=== PATIENT | male | born 1965 | race Caucasian/White ===

== ENCOUNTER → 2017-10-04 | Outpatient (REF) | payer OTHER ==
[2017-10-04 18:25] LABS: COMPLEMENT C3 163 MG/DL (90-180); COMPLEMENT C4 30.9 MG/DL (10-40); IMMUNOGLOBULIN G 1300 MG/DL (681-1648); IMMUNOGLOBULIN M 32.5 MG/DL (40-230)
[2017-10-09 08:07] LABS: ALPHA 1 ANTITRYPSIN 153 mg/dL (90-200)
[2017-10-09 08:07] LABS: D001-IgE D pteronyssinus 0.23 kU/L (Class 0/I); E001-IgE Cat Epith/Dander < 0.10 kU/L (Class 0); E005-IgE Dog Dander < 0.10 kU/L (Class 0); F002-IgE Milk 0.53 kU/L (Class I); F004-IgE Wheat 0.98 kU/L (Class II); F013-IgE Peanut 0.42 kU/L (Class I); F014-IgE Soybean 0.13 kU/L (Class 0/I); F026-IgE Pork < 0.10 kU/L (Class 0); F027-IgE Beef < 0.10 kU/L (Class 0); F092-IGE BANANA <0.10 kU/L (Class 0); F245-IgE Egg, Whole 0.17 kU/L (Class 0/I); FX02-IgE Food Mix (Sea Foods) Negative (.); G002-IgE Bermuda Grass < 0.10 kU/L (Class 0); G008-IgE Kentucky Bluegrass 0.43 kU/L (Class I); M001-IgE Penicillium chrysogen < 0.10 kU/L (Class 0); M002 IgE Cladosporium herbaru < 0.10 kU/L (Class 0); M003 IgE Aspergillus fumigatu < 0.10 kU/L (Class 0); M006-IgE Alternaria alternata < 0.10 kU/L (Class 0); T001-IgE Maple/Box Elder < 0.10 kU/L (Class 0); T006-IgE Cedar, Mountain 0.44 kU/L (Class I); T007-IgE Oak, White < 0.10 kU/L (Class 0); T008-IgE Elm, American < 0.10 kU/L (Class 0); T041-IgE Hickory, White 0.12 kU/L (Class 0/I); T070-IgE White Mulberry < 0.10 kU/L (Class 0); W001-IgE Ragweed, Short < 0.10 kU/L (Class 0); W009-IgE Plantain, English 0.11 kU/L (Class 0/I); W014-IgE Pigweed, Rough < 0.10 kU/L (Class 0); W018-IgE Sheep Sorrel < 0.10 kU/L (Class 0)
== END ==
LOC: M LAB REF 17:19
DX: R05 Cough (principal); H10.45 Other chronic allergic conjunctivitis; J32.0 Chronic maxillary sinusitis

== ENCOUNTER 2018-07-22 20:06 | Inpatient (IN) | payer OTHER ==
[~2018-07-22] VITALS: Ht 167.6 cm; Wt 132.0 kg
[2018-07-22] MEDS ORDERED: METHOCARBAMOL 1,000 MG/10 ML VIAL (J2800) IV ONE (20:30)
[2018-07-22] MEDS ORDERED: KETOROLAC 30 MG/ML VIAL (J1885) IV ONE (20:30)
[2018-07-22] MEDS ORDERED: ONDANSETRON 4MG/2ML VIAL (J2405) IV ONE (20:30)
[2018-07-22 20:57] LABS: BASO # 0.1 10^3/uL (0.0-0.2); BASO % 1.1 % (0.0-1.0); EOS # 0.7 10^3/uL (0.0-0.50); EOS % 8.5 % (0.0-3.0); HEMATOCRIT 42.5 % (42.0-52.0); HEMOGLOBIN 14.6 g/dl (13.5-17.5); LYMPH # 2.3 10^3/uL (1.5-4.5); LYMPH % 28.1 % (24.0-44.0); MEAN CORPUSCULAR HEMOGLOBIN 28.8 pg (27.0-33.0); MEAN CORPUSCULAR HGB CONC 34.4 g/dl (32.0-36.5); MEAN CORPUSCULAR VOLUME 83.8 fl (80.0-96.0); MONO # 0.9 10^3/uL (0.0-0.8); MONO % 10.9 % (0.0-5.0); NEUTROPHILS # 4.2 10^3/uL (1.8-7.7); NEUTROPHILS % 50.9 % (36.0-66.0); PLATELET COUNT, AUTOMATED 381 10^3/uL (150-450); RED BLOOD COUNT 5.07 10^6/uL (4.30-6.10); WHITE BLOOD COUNT 8.2 10^3/uL (4.0-10.0)
[2018-07-22 21:14] LABS: BLOOD UREA NITROGEN 14 MG/DL (7-18); CALCIUM LEVEL 8.7 MG/DL (8.5-10.1); CARBON DIOXIDE LEVEL 24 MEQ/L (21-32); CHLORIDE LEVEL 106 MEQ/L (98-107); GLOMERULAR FILTRATION RATE > 60.0 (>56); GLUCOSE, FASTING 93 MG/DL (70-100); POTASSIUM SERUM 4.2 MEQ/L (3.5-5.1); SODIUM LEVEL 138 MEQ/L (136-145)
--- NOTE | 2018-07-22 21:32 | REP ---
Clinical: Lower back pain. Technique: Axial noncontrast images from T11 through mid sacrum with coronal and sagittal re-formations. Findings: Large posterior disc herniation and vacuum phenomenon at the L5-S1 level is appreciated along with endplate sclerosis/heterogeneity and osteophyte formation. There is associated chronic bilateral L5 spondylolysis without spondylolisthesis along with chronic hypertrophic facet changes which narrow the lateral recesses. A small posterior disc bulges are also identified at the L3-4 and L4-5 levels with marginal osteophyte formation. Remainder examination appears normal. There is no evidence for acute fracture / compression injury or subluxation. The spinal canal is patent. Posterior elements and spinous processes through the L4-5 level are maintained. Impression: 1. Advanced degenerative disc disease at the L5-S1 level with chronic spondylolysis and hypertrophic facet changes as well as posterior disc bulge and significant vacuum phenomenon. Narrowing to the lateral recesses noted and effacement of the exiting nerve roots cannot be excluded. 2. Moderate degenerative changes with small posterior disc bulges at the L3-4 and L4-5 levels. Electronically Signed by Dustin Smith MD 07/22/2018 09:24 P
[2018-07-22 22:12] LABS: ACETAMINOPHEN LEVEL < 2.0 UG/ML (10.0-30.0); ALBUMIN 3.8 GM/DL (3.2-5.2); ALT/SGPT 19 U/L (12-78); BILIRUBIN,DIRECT 0.1 MG/DL (0.0-0.2); BILIRUBIN,TOTAL 0.4 MG/DL (0.2-1.0); ETHYL ALCOHOL (ETHANOL) < 0.003 % (0.000-0.010); SALICYLATE LEVEL < 1.7 MG/DL (5.0-30.0)
[2018-07-22] MEDS ORDERED: ALEV220T26 PO (22:38)
[2018-07-22] MEDS ORDERED: TORS20TA2 PO (22:38)
[2018-07-22] MEDS ORDERED: CETI10TA PO (22:38)
[2018-07-22] MEDS ORDERED: ZOLP10TA2 PO (22:38)
[2018-07-22] MEDS ORDERED: HYDR5CR TOP (22:38)
[2018-07-22] MEDS ORDERED: TYLE500T78 PO (22:38)
[2018-07-22] MEDS ORDERED: OMEP40CA2 PO (22:38)
[2018-07-23] MEDS: MORPHINE 4 MG/ML 1ML VIAL/SYRINGE (J2270) IV PRN (00:29)
[2018-07-23 00:43] LABS: AMPHETAMINES LEVEL URINE NEGATIVE (NEGATIVE); BARBITURATES URINE NEGATIVE (NEGATIVE); BENZODIAZEPINES URINE NEGATIVE (NEGATIVE); CANNABINOIDS URINE NEGATIVE (NEGATIVE); COCAINE METABOLITE URINE NEGATIVE (NEGATIVE); METHADONE URINE NEGATIVE (NEGATIVE); OPIATES URINE NEGATIVE (NEGATIVE); PHENCYCLIDINE URINE NEGATIVE (NEGATIVE)
[2018-07-23] MEDS ORDERED: traZODone 50 MG TAB PO PRN (01:15)
[2018-07-23] MEDS ORDERED: MAALOX 30 ML SUSP *UDC PO PRN (01:15)
[2018-07-23] MEDS ORDERED: MOM 30ML SUSPENSION UDC PO PRN (01:15)
[2018-07-23] MEDS ORDERED: ACETAMINOPHEN TAB 650MG DOSE (2X325MG) PO PRN (01:15)
[2018-07-23 04:01] VITALS: BP 148/90
[2018-07-23] MEDS ORDERED: NICOTINE 21MG/24HR 1 EA TRANSDERMAL TD SCH (09:00)
--- NOTE | 2018-07-23 09:10 | HPEPDOC ---
[facility] Medical History & Physical Date of Admission Jul 23, 2018 History and Physical PCP: Karoline Teixeira [employer] ATTENDING: Dr. Shankar Colindres HPI: 53 [facility] for unspecified depressive disorder, being medically examined today. The patient complains of low back pain. States it has been ongoing for some time. PCP recently ordered x-rays. CT scan was completed in the emergency department. States everything he has been prescribed for his low back pain has been ineffective. He states he has tried Tylenol, ibuprofen, naproxen, tramadol, and muscle relaxer. Tends to have pain in his hips and lower extremities. Uses a cane for ambulation. Denies falls. Reports no numbness or tingling. The patient has an ileostomy. Denies loss of urine control. Denies any fevers, chills, weakness, fatigue, SKELTON, CP, SOB, cough, palpitations, abdominal pain, N/V/D or changes in bowel or bladder habits. PMHx: Chronic low back pain Insomnia Allergic rhinitis Hypertension Eczema GERD Obesity. BMI 47.0 JAVID. CPAP. PSHX: Ileostomy Tonsillectomy Dupuytren's contracture left hand SOCHX: Resides in: [facility] Marital Status: Single Kids: None Employment: Unemployed Tobacco use: Denies ETOH: Denies Illicit Drugs: Denies IV Drug Use: Denies Tattoos done unprofessionally: Denies FAMHX: Mother: Alive, well Father: Alive, well ROS: As noted in HPI, otherwise 11pt ROS of systems reviewed and unremarkable. PE: GEN: 53 yo M, appears stated age. Appears unkept. No acute distress. Alert and oriented x 3. Pleasant, interactive. HEENT: Normocephalic, atraumatic. Pupils are equal, round, and reactive to light. Extraocular movements are intact. No nystagmus appreciated. Sclera are nonicteric. Conjunctiva without injection. Nose midline. Nasal turbinates without bogginess. EACs both patent BL. TMs both visualized and sutton with good cone of light, no bulging or erythema. No facial asymmetry. Moist mucous membranes. Dentition fair. Pharynx pink and moist, no cobblestoning. Neck supple, trachea midline. No lymphadenopathy or thyromegaly appreciated. CHEST: Regular rate and rhythm, +S1, +S2 LUNGS: Clear to auscultation bilaterally. No wheezes, rales, or rhonchi. Breathing appears symmetric and easy. Patient is speaking in full sentences. No accessory muscle use. ABD: Round, soft, non-tender, non-distended. +Bowel sounds throughout. No rebound or guarding. No costovertebral angle tenderness. EXT: Pulses 2+ bilaterally dorsalis pedis and radial. No lower extremity edema appreciated. SKIN: [place], dry, warm. Capillary refill <2sec. No rashes. NEURO: Alert and oriented x 3. Cranial nerves III-XII are intact. No focal deficits appreciated. Ambulating with the assistance of cane. EKG: pending Lumbar CT 1. Advanced degenerative disc disease at the L5-S1 level with chronic spondylolysis and hypertrophic facet changes as well as posterior disc bulge and significant vacuum phenomenon. Narrowing to the lateral recesses noted and effacement of the exiting nerve roots cannot be excluded. 2. Moderate degenerative changes with small posterior disc bulges at the L3-4 and L4-5 levels. Electronically Signed by Dustin Smith MD 07/22/2018 09:24 P A&P: 53 yo M [facility] for unspecified depressive disorder 1. Psych. Plan per Psychiatry. Obtain baseline EKG to assure the safety of psychiatric medications as they can prolong the QT interval. 2. GERD. Continue Prilosec 40 mg by mouth daily. 3. Allergic rhinitis. Continue Zyrtec 10 mg daily. 4. Follow up with PCP on discharge. 5. Hypertension. Continue torsemide 20 mg by mouth every other day. 6. Obesity. BMI noted to be 47. Complicates care. TSH is noted within normal limits. Glucose on admission noted to be 93. 7. JAVID. Continue CPAP with home settings. 8. Chronic low back pain. CT scan indicating degenerative disc disease. Continue Tylenol 650 mg every 6 hours as needed. Apply Lidoderm patch 12 hours on 12 hours off. Patient states he has tried multiple medications including ibuprofen, naproxen, tramadol, muscle relaxers which are all ineffective. Consider pain management consultation if needed. 9. Staff member Kwan present throughout exam. Vital Signs Vital Signs Date Time Temp Pulse Resp B/P (MAP) Pulse Ox O2 Delivery O2 Flow Rate FiO2 07/23/18 04:01 97.3 100 18 148/90 (109) 07/23/18 03:08 97 07/23/18 01:30 Room Air Laboratory Data Labs 24H Laboratory Tests 2 07/22/18 20:35: Immature Granulocyte % (Auto) 0.5, White Blood Count 8.2, Red Blood Count 5.07, Hemoglobin 14.6, Hematocrit 42.5, Mean Corpuscular Volume 83.8, Mean Corpuscular Hemoglobin 28.8, Mean Corpuscular Hemoglobin Concent 34.4, Red Cell Distribution Width 13.2, Platelet Count 381, Neutrophils (%) (Auto) 50.9, Lymphocytes (%) (Au to) 28.1, Monocytes (%) (Auto) 10.9H, Eosinophils (%) (Auto) 8.5H, Basophils (%) (Auto) 1.1H, Neutrophils # (Auto) 4.2, Lymphocytes # (Auto) 2.3, Monocytes # (Auto) 0.9H, Eosinophils # (Auto) 0.7H, Basophils # (Auto) 0.1, Nucleated Red Blood Cells % (auto) 0.0, Anion Gap 8, Glomerular Filtration Rate > 60.0, Calcium Level 8.7, Aspartate Amino Transf (AST/SGOT) 22, Alanine Aminotransferase (ALT/SGPT) 19, Alkaline Phosphatase 145H, Total Bilirubin 0.4, Direct Bilirubin 0.1, Total Protein 7.0, Albumin 3.8, Albumin/Globulin Ratio 1.19, Thyroid Stimulating Hormone (TSH) 1.540, Salicylates Level < 1.7L, Acetaminophen Level < 2.0L, Ethyl Alcohol Level < 0.003 07/22/18 23:58: Urine Amphetamines Screen NEGATIVE, Urine Benzodiazepines Screen NEGATIVE, Urine Opiates Screen NEGATIVE, Urine Methadone Screen NEGATIVE, Urine Barbiturates Screen NEGATIVE, Urine Phencyclidine Screen NEGATIVE, Urine Cocaine Metabolite Screen NEGATIVE, Urine Cannabinoids Screen NEGATIVE CBC/BMP Laboratory Tests 07/22/18 20:35 Red Blood Count 5.07, Mean Corpuscular Volume 83.8, Mean Corpuscular Hemoglobin 28.8, Mean Corpuscular Hemoglobin Concent 34.4, Red Cell Distribution Width 13.2, Neutrophils (%) (Auto) 50.9, Lymphocytes (%) (Auto) 28.1, Monocytes (%) (Auto) 10.9 H, Eosinophils (%) (Auto) 8.5 H, Basophils (%) (Auto) 1.1 H, Neutrophils # (Auto) 4.2, Lymphocytes # (Auto) 2.3, Monocytes # (Auto) 0.9 H, Eosinophils # (Auto) 0.7 H, Basophils # (Auto) 0.1 Home Medications Scheduled Omeprazole (Omeprazole) 40 Mg Cap, 40 MG PO DAILY Torsemide (Torsemide) 20 Mg Tab, 20 MG PO Q2D Scheduled PRN Acetaminophen (Tylenol Extra Strength) 500 Mg Tab, 1,000 MG PO Q6H PRN for PAIN Cetirizine HCl (Cetirizine HCl) 10 Mg Tab, 10 MG PO QHS PRN for ALLERGY SYMPTOMS Hydrocortisone (Hydrocortisone 0.5%) 1 Dose/30 Gm Cream, 1 DOSE TOP BID PRN for ECZEMA USES ON HANDS Naproxen Sodium (Aleve) 220 Mg Tab, 440 MG PO BID PRN for PAIN Zolpidem Tartrate (Zolpidem Tartrate) 10 Mg Tab, 10 MG PO QHS PRN for SLEEP Allergies Coded Allergies: Dust Mite Extract (Verified Allergy, Intermediate, 07/22/18) METALS (Verified Allergy, Intermediate, 07/22/18) POLLEN (Verified Allergy, Intermediate, 07/22/18) Rebecca Pate Jul 23, 2018 09:10
[2018-07-23] MEDS ORDERED: CETIRIZINE (ZyrTEC) 10 MG TAB PO PRN (09:15)
[2018-07-23] MEDS: TORSEMIDE 20 MG TAB PO SCH (10:23)
[2018-07-23] MEDS: LIDOCAINE 5% (LIDODERM) PATCH TD SCH (10:24)
[2018-07-23] MEDS: OMEPRAZOLE 20 MG CAP PO SCH (10:24)
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
[2018-07-23] MEDS ORDERED: traMADol 50 MG TAB PO PRN (14:45)
[2018-07-23] MEDS: GABAPENTIN 300 MG CAP PO SCH ×2 (15:13→20:12)
[2018-07-23 18:00] VITALS: BP 162/86
[2018-07-23] MEDS: ARIPiprazole 2 MG TAB PO SCH (20:12)
[2018-07-23] MEDS: **NOTE PATIENT COMMENT** MISC XX SCH (20:13)
[2018-07-23] MEDS: traMADol 50 MG TAB PO SCH (20:40)
[2018-07-24 06:50] VITALS: BP 127/75
[2018-07-24] MEDS: GABAPENTIN 300 MG CAP PO SCH ×3 (08:57→21:00)
[2018-07-24] MEDS: OMEPRAZOLE 20 MG CAP PO SCH (08:57)
[2018-07-24] MEDS: VENLAFAXINE **XR** 75MG CAPSULE PO SCH (08:57)
[2018-07-24] MEDS: traMADol 50 MG TAB PO SCH ×3 (08:58→21:00)
[2018-07-24] MEDS: LIDOCAINE 5% (LIDODERM) PATCH TD SCH (08:59)
[2018-07-24] MEDS ORDERED: FLUBLOK(EGG FREE)(QUAD)INFLUENZA VACC 0.5ML SYRINGE (90682)18YRS&OLDER IM ONE (09:00)
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
[2018-07-24] MEDS: CYCLOBENZAPRINE 5MG TABLET PO SCH ×2 (12:00→21:00)
[2018-07-24 18:00] VITALS: BP 163/99
[2018-07-24] MEDS: **NOTE PATIENT COMMENT** MISC XX SCH (21:00)
[2018-07-24] MEDS: ARIPiprazole 2 MG TAB PO SCH (21:00)
--- NOTE | 2018-07-24 21:24 | ECGEPIP ---
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
[2018-07-25 06:22] VITALS: BP 131/77
[2018-07-25 08:25] LABS: CHOLESTEROL RISK RATIO 5.769 (<5)
--- NOTE | 2018-07-25 09:21 | REP ---
MRI LUMBAR SPINE WITHOUT CONTRAST: HISTORY: Back pain. COMPARISON: CT 07/22/2018. Decreased signal intensity on T2-weighted images is present in the L5-S1 intervertebral disc. The disc is decreased in height. These findings are consistent with disc degeneration. There is no disc bulge or herniation at the L1-2 level. The L1 nerves exit the neural foramina without compression. A diffuse disc bulge is present at the L2-3 level. This abuts the thecal sac. The L2 nerves exit the neural foramina without compression. A diffuse disc bulge is present at the L3-4 level. This abuts the thecal sac. The L3 nerves exit the neural foramina without compression. A diffuse disc bulge is present at the L4-5 level. This abuts the thecal sac. The L4 nerves exit the neural foramina without compression. A diffuse disc bulge and small central disc protrusion are present at the L5-S1 level. The disc protrusion abuts the thecal sac. There is hypertrophy of the posterior articulating facets. There are bilateral L5 pars defects. There is compression of the L5 nerves in the neural foramina. There is an increase in the amount of epidural fat. There is mild compression of the thecal sac. The conus medullaris is normal in appearance terminating at the level of the L1-2 intervertebral disc. Increased signal intensity on T2-weighted images is present in the endplates of the L5 and S1 vertebral bodies. This represents degenerative change. Hemangiomas are present in the L1 and S1 vertebral bodies. IMPRESSION: 1. Diffuse disc bulges at the L2-3 through L4-5 levels . The disc bulges abut the thecal sac. 2. Diffuse disc bulge and small central disc protrusion at the L5-S1 level. This abuts the thecal sac. There is an increase in the amount of epidural fat with mild thecal sac compression. There are bilateral L5 pars defects. There is compression of the L5 nerves in the neural foramina. Electronically Signed by Nilo Garcia MD 07/25/2018 09:32 A
[2018-07-25 09:29] LABS: HEMOGLOBIN A1c 5.5 %
[2018-07-25] MEDS: VENLAFAXINE **XR** 75MG CAPSULE PO SCH (09:31)
[2018-07-25] MEDS: OMEPRAZOLE 20 MG CAP PO SCH (09:31)
[2018-07-25] MEDS: GABAPENTIN 300 MG CAP PO SCH (09:31)
[2018-07-25] MEDS: CYCLOBENZAPRINE 5MG TABLET PO SCH (09:31)
[2018-07-25] MEDS: LIDOCAINE 5% (LIDODERM) PATCH TD SCH (09:32)
[2018-07-25] MEDS: traMADol 50 MG TAB PO SCH (09:35)
[2018-07-25] MEDS: TORSEMIDE 20 MG TAB PO SCH (09:37)
[2018-07-25] MEDS ORDERED: GABA-843 PO (11:21)
[2018-07-25] MEDS ORDERED: TRAM50TA2 PO ×2 (11:21→11:23)
[2018-07-25] MEDS ORDERED: TRAZO50TA PO (11:21)
[2018-07-25] MEDS ORDERED: LIDO5TD TD (11:21)
[2018-07-25] MEDS ORDERED: VENL75CA47 PO (11:21)
[2018-07-25] MEDS ORDERED: CYCL5TAB PO (11:21)
[2018-07-25] MEDS ORDERED: ARIP2TAB PO (11:21)
--- NOTE | 2018-07-29 12:38 | MHDSPDOC ---
[facility] Discharge Summary Discharge Summary DATE OF ADMISSION: Jul 23, 2018 at 01:02 DATE OF DISCHARGE: Jul 25, 2018 DISCHARGE DIAGNOSES: 1. Major Depressive disorder, secondary to other medical condition 2. IDALIA 3. Social Anxiety disorder 4. Ulcerative colitis 5. Lower back pain 6. Sleep apnea REASON FOR ADMISSION: Per H and P by Dr. Juares 07/25/18: "Patient is a 53 -year-old , male, who according to ED report: "Reason for Referral Pt initially presented to the ED due to back pain. He told an RN that he was suicidal. Chief Complaint Pt states that he has had back pain that has become worse over the past few months. Pt states he is suicidal because of the pain with a plan to OD. Pt has meds at home plus he has a "stash" of OTC meds. Pt c/o depression, anxiety in crowds, hopelessness & helplessness, poor appetite, & poor sleep. Pt uses a CPAP & also has an ostomy. Pt has a hx of depression & anxiety but no current OP tx. He is prescribed Effexor by his PCP. Pt denies substance use but states that he has been using more Tylenol & Aleve than he should be to control his pain." CONSULTANTS INVOLVED: None TREATMENT AND PROGRESS ON THE UNIT : Patient admitted on a 9.39, for suicidal ideations. Reported when he is in pain "he feels like dying", but that he has no plan to end his life and that he was receiving poor outside support for pain control. Patient in no acute distress, alert and oriented x4, denies side effects from medications, at time of discharge denies suicidal or homicidal ideations, denies ana laura, denies paranoia or hallucinations. He received an spine CT in the ED and MRI on the unit which showed lumbar spine disk bulges and L5 compression. EKG showed sinus tachycardia at 104 bpm, QTc 453 ms with RBBB, CBC unremarkable (apart from elevated monocytes), CMP unremarkable, TSH within normal limits at 1.540, lipid panel showed hyperlipidemia (tag 336 mg/dl, total cholesterol 225 mg/dl, ldl at 119 mg/dl) was low at HDL 39 mg/dl. Hba1c was within normal range at 5.5%. He was continued on home medications and CPAP which was tolerated well. Dis not attend groups due to pain while walking, pain consult was ordered. He was started on tramadol which was discontinued, torsemide 20 mg PO Q2days, 5% lidocain patch, gabapentin 300 mg PO TID for pain. Pain was decreased to a 3-5/10 while walking and lower while lying down. He was able to manage his ostomy bad while on the unit. He was also continued on home effexor 225 mg PO daily for mood/anxiety and started on abilify 2 mg PO QHS for augmentation of his antidepressant. During stay with decrease in pain and medications for depression reported his mood/anxiety improved. He also learned coping skills while staying a room with his his roommate, as he feels anxious around others, this was a point of therapy. HOSPITAL COURSE: See above. DISCHARGE ASSESSMENT: He should be raftered by primary doctor for pain management and neurology outpatient followup appointment. He should also be assessed for possible treatment of hyperlipidemia. On discharge he denies suicidal or homicidal ideations, denies ana laura or hallucinations, denies paranoia, he is alert and oriented x4, in no acute distress, reports 3-5/10 pain when not lying flat, denies side effects of his medications. States his mood is "fine" and that he is ready to leave. MENTAL STATUS EXAMINATION ON DISCHARGE: Patient is a 53-year old morbidly obese male, who is not in pain only if lies flat and does not move, improved eye-contact. Speech: Is normal rate, rhythm, volume. Language skills are good. Thought processes including: linear, logical Thought content: Perseverates on pain. Abstract reasoning, and computation: intact. Description of associations: intact Description of abnormal or psychotic thoughts: Denies Judgment: fair Insight: good Orientation: x4 Recent and remote memory: intact Attention span and concentration: intact Language: zambian Fund of knowledge: average Mood: "fine" Affect: mildly anxious to leave, constricted, mood-congruent, does not smile MEDICATIONS ON DISCHARGE: Scheduled Aripiprazole (Aripiprazole) 2 Mg Tab, 2 MG PO QHS for mood/antidepressant booster Cyclobenzaprine HCl (Cyclobenzaprine HCl) 5 Mg Tab, 5 MG PO BID for muscle relaxants Gabapentin (Gabapentin) 300 Mg Cap, 300 MG PO TID for neuropathy Lidocaine (Lidocaine) 5 % Pad, 1 PATCH TD DAILY for lidocaine patch Apply to lower back. The patch should stay fro only 12 hpurs and then it must be removed. Omeprazole (Omeprazole) 40 Mg Cap, 40 MG PO DAILY Torsemide (Torsemide) 20 Mg Tab, 20 MG PO Q2D Venlafaxine HCl (Venlafaxine HCl ER) 75 Mg Capcr, 225 MG PO DAILY for depression/anxiety Scheduled PRN Acetaminophen (Tylenol Extra Strength) 500 Mg Tab, 1,000 MG PO Q6H PRN for PAIN Cetirizine HCl (Cetirizine HCl) 10 Mg Tab, 10 MG PO QHS PRN for ALLERGY SYMPTOMS Hydrocortisone (Hydrocortisone 0.5%) 1 Dose/30 Gm Cream, 1 DOSE TOP BID PRN for ECZEMA USES ON HANDS Naproxen Sodium (Aleve) 220 Mg Tab, 440 MG PO BID PRN for PAIN Trazodone HCl (Trazodone HCl) 50 Mg Tab, 50 MG PO QHSP PRN for INSOMNIA Zolpidem Tartrate (Zolpidem Tartrate) 10 Mg Tab, 10 MG PO QHS PRN for SLEEP PLAN/FOLLOWUP ARRANGEMENTS: Follow Up Care Education Label * Medical * Medical Follow Up [facility] * Established With This Provider Yes * Therapist LAURA EDMONDSON * Date Aug 05, 2018 * Time 13:00 * Address of Clinic or Practice [address] [place] [address] * Follow Up Care Education Label * Mental Health Appt 1 * Mental Health [facility] * Established With This Provider No * Therapist TITA * Date Jul 30, 2018 * Time 15:00 * Address of Clinic or Practice [address] [place] [address] * * Additional information Remember to bring your insurance card and photo ID to the appointment. Follow Up Care Education Label * Mental Health Appt 2 * Mental [facility] * Established With This Provider No * Therapist CAROL * Date Aug 21, 2018 * Time 10:30 * Address of Clinic or Practice [address] [place] [address] * * Additional information Remember to bring your insurance card and photo ID to the appointment. The amount of time spent in the coordination of care for this patient was approximately 30 minutes. Vital Signs/I&Os Vital Signs Date Time Temp Pulse Resp B/P (MAP) Pulse Ox O2 Delivery O2 Flow Rate FiO2 07/25/18 09:35 76 18 07/25/18 06:22 99.1 131/77 (95) 07/23/18 03:08 97 07/23/18 01:30 Room Air Laboratory Data Labs 24H Laboratory Tests 2 07/25/18 07:15: Estimated Mean Plasma Glucose 111H, Hemoglobin A1c 5.5, Triglycerides Level 336H, LDL Cholesterol 119H, Total Cholesterol 225H, Non-HDL Cholesterol (LDL + VLDL) 186, Total HDL Cholesterol 39L, Cholesterol/HDL Ratio 5.769H Medications Scheduled Aripiprazole (Aripiprazole) 2 Mg Tab, 2 MG PO QHS for mood/antidepressant booster, #7 Cyclobenzaprine HCl (Cyclobenzaprine HCl) 5 Mg Tab, 5 MG PO BID for muscle relaxants, #14 Gabapentin (Gabapentin) 300 Mg Cap, 300 MG PO TID for neuropathy, #21 Lidocaine (Lidocaine) 5 % Pad, 1 PATCH TD DAILY for lidocaine patch, #7 Apply to lower back. The patch should stay fro only 12 hpurs and then it must be removed. Omeprazole (Omeprazole) 40 Mg Cap, 40 MG PO DAILY, (Reported) Torsemide (Torsemide) 20 Mg Tab, 20 MG PO Q2D, (Reported) Venlafaxine HCl (Venlafaxine HCl ER) 75 Mg Capcr, 225 MG PO DAILY for depression/anxiety, #21 Scheduled PRN Acetaminophen (Tylenol Extra Strength) 500 Mg Tab, 1,000 MG PO Q6H PRN for PAIN, (Reported) Cetirizine HCl (Cetirizine HCl) 10 Mg Tab, 10 MG PO QHS PRN for ALLERGY SYMPTOMS, (Reported) Hydrocortisone (Hydrocortisone 0.5%) 1 Dose/30 Gm Cream, 1 DOSE TOP BID PRN for ECZEMA, (Reported) USES ON HANDS Naproxen Sodium (Aleve) 220 Mg Tab, 440 MG PO BID PRN for PAIN, (Reported) Trazodone HCl (Trazodone HCl) 50 Mg Tab, 50 MG PO QHSP PRN for INSOMNIA, #7 Zolpidem Tartrate (Zolpidem Tartrate) 10 Mg Tab, 10 MG PO QHS PRN for SLEEP, (Reported) Allergies Coded Allergies: Dust (Verified Allergy, Intermediate, 07/24/18) METALS (Verified Allergy, Intermediate, 07/22/18) POLLEN (Verified Allergy, Intermediate, 07/22/18) MILAN ANGELES PGY-1 Jul 25, 2018 13:41
== END 2018-07-25 14:44 | disposition home or self-care (01) | DRG 754 ==
LOC: M ED 20:06 → M ED INP 07-23 01:02 → M PSY 07-23 03:20
PROVIDERS: ADMIT Psychiatry & Neurology Psychiatry; ATTEND Psychiatry & Neurology Psychiatry
DX: F32.9 Major depressive disorder, single episode, unspecified (principal); K51.90 Ulcerative colitis, unspecified, without complications; Z68.42 Body mass index [BMI] 45.0-49.9, adult; F41.1 Generalized anxiety disorder; F40.10 Social phobia, unspecified; M47.896 Other spondylosis, lumbar region; G47.33 Obstructive sleep apnea (adult) (pediatric); F06.31 Mood disorder due to known physiological condition with depressive features; J30.1 Allergic rhinitis due to pollen; L30.9 Dermatitis, unspecified; E78.5 Hyperlipidemia, unspecified; K21.9 Gastro-esophageal reflux disease without esophagitis; E66.9 Obesity, unspecified; M51.26 Other intervertebral disc displacement, lumbar region; Z91.048 Other nonmedicinal substance allergy status; Z93.2 Ileostomy status; Z79.899 Other long term (current) drug therapy

== ENCOUNTER 2018-08-12 18:20 | Emergency (ER) | payer OTHER ==
[~2018-08-12] VITALS: Ht 167.6 cm; Wt 133.6 kg
[~2018-08-12 18:20] MED LIST: ALEV220T26 PO; ARIP1TAB4 PO; CETI10TA PO; CYCL5TAB PO; GABA-843 PO; HYDR5CR TOP; LIDO5TD TD; OMEP40CA2 PO; TORS20TA2 PO; TRAM50TA2 PO; TRAZO50TA PO; TYLE500T78 PO; VENL75CA47 PO; ZOLP10TA2 PO
[2018-08-12 20:03] LABS: BASO % 0.4 % (0.0-1.0); EOS # 0.4 10^3/uL (0.0-0.50); EOS % 4.4 % (0.0-3.0); HEMATOCRIT 51.3 % (42.0-52.0); HEMOGLOBIN 17.2 g/dl (13.5-17.5); LYMPH # 0.7 10^3/uL (1.5-4.5); LYMPH % 7.6 % (24.0-44.0); MEAN CORPUSCULAR HEMOGLOBIN 29.2 pg (27.0-33.0); MEAN CORPUSCULAR HGB CONC 33.5 g/dl (32.0-36.5); MEAN CORPUSCULAR VOLUME 86.9 fl (80.0-96.0); MONO # 0.8 10^3/uL (0.0-0.8); MONO % 8.3 % (0.0-5.0); NEUTROPHILS # 7.4 10^3/uL (1.8-7.7); NEUTROPHILS % 78.8 % (36.0-66.0); PLATELET COUNT, AUTOMATED 456 10^3/uL (150-450); WHITE BLOOD COUNT 9.4 10^3/uL (4.0-10.0)
[2018-08-12 20:20] LABS: ALBUMIN 4.5 GM/DL (3.2-5.2); BILIRUBIN,DIRECT 0.2 MG/DL (0.0-0.2); CALCIUM LEVEL 9.6 MG/DL (8.5-10.1); CREATININE FOR GFR 1.34 MG/DL (0.70-1.30); GLOMERULAR FILTRATION RATE 59.1 (>56); POTASSIUM SERUM 4.9 MEQ/L (3.5-5.1); TOTAL PROTEIN 8.5 GM/DL (6.4-8.2)
[2018-08-12] MEDS ORDERED: NS 1,000 ML IV ONE ×2 (21:15)
[2018-08-12] MEDS ORDERED: ONDANSETRON 4MG/2ML VIAL (J2405) IV ONE (21:15)
[2018-08-12 23:28] VITALS: BP 107/71
== END 2018-08-12 23:38 | disposition home or self-care (01) ==
LOC: M ED 18:20
DX: R19.7 Diarrhea, unspecified (principal); B34.9 Viral infection, unspecified; I10 Essential (primary) hypertension; F33.9 Major depressive disorder, recurrent, unspecified; F41.9 Anxiety disorder, unspecified; M54.5 Low back pain; E66.8 Other obesity; Z87.19 Personal history of other diseases of the digestive system; Z79.899 Other long term (current) drug therapy; Z88.0 Allergy status to penicillin; Z91.048 Other nonmedicinal substance allergy status; J30.89 Other allergic rhinitis
CPT/HCPCS: 80048; 80076; 83690; 85025; 87507; 96374; 99284; J2405

== ENCOUNTER → 2018-08-27 | Outpatient (RCR) | payer OTHER | LOC: M PT 07-31 08:03 | PROVIDERS: ATTEND Nurse Practitioner Adult Health | DX: M54.5 Low back pain (principal) ==

== ENCOUNTER 2018-09-26 09:25 | Outpatient (RCR) | payer OTHER | END 2018-09-27 | LOC: M PT 09:25 | PROVIDERS: ATTEND Nurse Practitioner Adult Health | DX: M54.5 Low back pain (principal) ==

== ENCOUNTER 2018-10-22 09:04 | Outpatient (RCR) | payer OTHER ==
[~2018-10-22 09:04] MED LIST changes: +TRAZ1TAB10 PO; -TRAZO50TA PO
== END 2018-10-27 ==
LOC: M PT 09:04
PROVIDERS: ATTEND Nurse Practitioner Adult Health
DX: M54.5 Low back pain (principal)

== ENCOUNTER 2018-11-26 09:28 | Outpatient (RCR) | payer OTHER | END 2018-11-27 | LOC: M PT 09:28 | PROVIDERS: ATTEND Nurse Practitioner Adult Health | DX: Z51.89 Encounter for other specified aftercare (principal); M54.5 Low back pain ==

== ENCOUNTER 2018-12-17 09:30 | Outpatient (RCR) | payer OTHER | END 2018-12-28 | LOC: M PT 09:30 | PROVIDERS: ATTEND Nurse Practitioner Adult Health | DX: Z51.89 Encounter for other specified aftercare (principal); M54.5 Low back pain ==

== ENCOUNTER → 2019-02-13 | Outpatient (REF) | payer OTHER ==
[~2019-02-13] MED LIST changes: -OMEP40CA2 PO; +OMEP40CA97 PO
[2019-02-13 13:59] LABS: THYROID STIMULATING HORMONE 1.86 uIU/ML (0.358-3.740); TOTAL 25(OH) VITAMIN D 16.7 NG/ML (30.0-100.0)
[2019-02-13 14:32] LABS: HEMOGLOBIN A1c 5.7 %
== END ==
LOC: M LAB REF 12:41
PROVIDERS: ATTEND Nurse Practitioner Adult Health
DX: F33.1 Major depressive disorder, recurrent, moderate (principal)

== ENCOUNTER 2019-04-19 14:57 | Emergency (ER) | payer OTHER ==
[~2019-04-19] VITALS: Ht 167.6 cm; Wt 143.2 kg
[2019-04-19] MEDS ORDERED: MENT1CRE (15:08)
[2019-04-19] MEDS ORDERED: TRAM50TA2 (15:08)
[2019-04-19] MEDS ORDERED: MEDR4PAK PO (15:36)
[2019-04-19] MEDS ORDERED: KETOROLAC 60 MG/2 ML VIAL (J1885) IM ONE (15:45)
[2019-04-19 16:04] VITALS: BP 152/93
== END 2019-04-19 16:05 | disposition home or self-care (01) ==
LOC: M ED 14:57
DX: M54.41 Lumbago with sciatica, right side (principal); M51.36 Other intervertebral disc degeneration, lumbar region; M51.26 Other intervertebral disc displacement, lumbar region; Z91.048 Other nonmedicinal substance allergy status; Z88.0 Allergy status to penicillin; Z79.83 Long term (current) use of bisphosphonates; Z79.891 Long term (current) use of opiate analgesic; Z79.899 Other long term (current) drug therapy
CPT/HCPCS: 96372; 99283; J1885

== ENCOUNTER → 2019-12-15 | Outpatient (REF) | payer OTHER ==
[~2019-12-15] MED LIST changes: +MEDR4PAK PO; +MENT1CRE; +TRAM50TA2
[2020-01-20 13:51] LABS: D001-IgE D pteronyssinus See Separate Report
[2020-01-20 13:52] LABS: CLASS DESCRIPTION SEE SEPARATE REPORT; E003-IGE HORSE EPITHELIA/DAND SEE SEPARATE REPORT; E004-IGE COW DANDER SEE SEPARATE REPORT
[2020-02-10 00:43] LABS: IMMUNOGLOBULIN M 23.9 MG/DL (40-230)
== END ==
LOC: M LAB REF 16:08
PROVIDERS: ATTEND Internal Medicine
DX: J30.1 Allergic rhinitis due to pollen (principal); H10.45 Other chronic allergic conjunctivitis; L23.0 Allergic contact dermatitis due to metals; J30.9 Allergic rhinitis, unspecified

== ENCOUNTER → 2020-06-14 | Outpatient (REF) | payer MEDICARE ==
[~2020-06-14] MED LIST changes: +GABA-282 PO; -GABA-843 PO
== END ==
LOC: M LAB REF 15:59
PROVIDERS: ATTEND Internal Medicine
DX: R94.5 Abnormal results of liver function studies (principal); Z79.899 Other long term (current) drug therapy

== ENCOUNTER → 2020-12-13 | Outpatient (REF) | payer MEDICARE ==
[~2020-12-13] MED LIST changes: +OMEP40CA4 PO; -OMEP40CA97 PO
== END ==
LOC: M LAB REF 11:23
PROVIDERS: ATTEND Internal Medicine
DX: R94.5 Abnormal results of liver function studies (principal); Z79.899 Other long term (current) drug therapy

== ENCOUNTER → 2022-09-27 | Outpatient (CLI) | payer MEDICARE | LOC: M WUC 08:39 | PROVIDERS: ATTEND Physician Assistant Medical | DX: M25.561 Pain in right knee (principal); M25.562 Pain in left knee; M54.9 Dorsalgia, unspecified ==

== ENCOUNTER → 2022-12-11 | Outpatient (REF) | payer MEDICARE ==
[2022-12-11 12:35] LABS: COMPLEMENT C3 174.1 MG/DL (90.0-170.0)
[2022-12-11 12:36] LABS: COMPLEMENT C4 36.2 MG/DL (12-36); IMMUNOGLOBULIN M 42.5 MG/DL (50-300)
[2022-12-11 12:46] LABS: IMMUNOGLOBULIN A 504.3 MG/DL (40-350)
== END ==
LOC: M LAB REF 11:49
PROVIDERS: ATTEND Internal Medicine
DX: J30.1 Allergic rhinitis due to pollen (principal); J30.89 Other allergic rhinitis

== ENCOUNTER → 2023-06-05 | Outpatient (REF) | payer MEDICARE ==
[2023-06-05 19:50] LABS: FERRITIN 96.3 NG/ML (10.5-307.3)
[2023-06-05 20:24] LABS: HEPATITIS B CORE ANTIBODY IGM NEGATIVE (NEGATIVE); HEPATITIS C VIRUS ABY INDEX 0.02 INDEX (<0.8)
[2023-06-07 17:08] LABS: ANTI-MITOCHONDRIAL ANTIBODY <20.0 Units (0.0-20.0); ANTINUCLEAR ANTIBODIES DIRECT Negative (Negative)
== END ==
LOC: M LAB REF 17:46
PROVIDERS: ATTEND Internal Medicine
DX: K76.0 Fatty (change of) liver, not elsewhere classified (principal); R94.5 Abnormal results of liver function studies

== ENCOUNTER → 2023-10-01 | Outpatient (REF) | payer MEDICARE ==
[2023-10-01 18:26] LABS: IRON (FE) 70 UG/DL (65-175); TOTAL IRON BINDING CAPACITY 369 UG/DL (250-425)
[2023-10-01 18:30] LABS: FERRITIN 30.9 NG/ML (10.5-307.3)
[2023-10-01 18:44] LABS: HEPATITIS B SURFACE ANTIGEN NEGATIVE (NEGATIVE)
[2023-10-01 19:04] LABS: HEPATITIS B CORE ANTIBODY IGM NEGATIVE (NEGATIVE); HEPATITIS C VIRUS ABY INDEX 0.03 INDEX (<0.8)
[2023-10-03 15:27] LABS: ANTI-MITOCHONDRIAL ANTIBODY NEGATIVE (NEGATIVE)
[2023-10-06 00:48] LABS: ANTI-SMOOTH MUSCLE ANTIBODY < 20 U (<20)
== END ==
LOC: M LAB REF 16:29
PROVIDERS: ATTEND Internal Medicine
DX: K75.81 Nonalcoholic steatohepatitis (NASH) (principal)

== ENCOUNTER 2023-11-07 09:10 | Outpatient (RCR) | payer MEDICARE | END 2023-11-28 | LOC: M PT 09:10 | PROVIDERS: ATTEND Internal Medicine | DX: Z74.09 Other reduced mobility (principal) ==

== ENCOUNTER → 2023-11-12 | Outpatient (CLI) | payer MEDICARE | LOC: M RAD 06:31 | PROVIDERS: ATTEND Nurse Practitioner Family | DX: K75.81 Nonalcoholic steatohepatitis (NASH) (principal); K80.20 Calculus of gallbladder without cholecystitis without obstruction ==

== ENCOUNTER → 2024-04-21 | Outpatient (REF) | payer MEDICARE ==
[~2024-04-21] MED LIST changes: -CYCL5TAB PO; +CYCL5TAB4 PO; +GABA-1172 PO; -GABA-282 PO
== END ==
LOC: M LAB REF 12:46
PROVIDERS: ATTEND Internal Medicine
DX: K76.0 Fatty (change of) liver, not elsewhere classified (principal)

== ENCOUNTER → 2024-12-08 | Outpatient (CLI) | payer MEDICARE | LOC: M RAD 07:29 | PROVIDERS: ATTEND Internal Medicine | DX: I71.40 Abdominal aortic aneurysm, without rupture, unspecified (principal); K76.0 Fatty (change of) liver, not elsewhere classified; K80.20 Calculus of gallbladder without cholecystitis without obstruction ==

== ENCOUNTER → 2025-04-28 | Outpatient (REF) | payer MEDICARE ==
[~2025-04-28] MED LIST changes: +ZOLP10TA11 PO; -ZOLP10TA2 PO
== END ==
LOC: M LAB REF 12:26
PROVIDERS: ATTEND Internal Medicine
DX: K76.0 Fatty (change of) liver, not elsewhere classified (principal); K74.00 Hepatic fibrosis, unspecified